=== PATIENT | male | born 1970 | race Caucasian/White ===

== ENCOUNTER 2016-07-29 17:21 | Emergency (ER) | payer OTHER ==
[~2016-07-29] VITALS: Ht 177.8 cm; Wt 75.0 kg
[~2016-07-29 17:21] MED LIST: BUSP5TAB3 PO; PROZ40CA PO
[2016-07-29 17:46] VITALS: BP 124/77; PULSE 98; RESP 20; TEMP 97.1; O2SAT 98
[2016-07-29] MEDS ORDERED: REME15TA PO (17:50)
--- NOTE | 2016-07-29 18:05 | PD ---
HPI Chief Complaint: Psychiatric Symptoms Time Seen by Provider: 18:05 Travel History International Travel<30 days: No Contact w/Intl Traveler<30days: No Traveled to known affect area: No History of Present Illness HPI 46-year-old male is brought into the emergency department under a [place] act for evaluation. Patient has been drinking alcohol and states that he took pain medication ordered to help him sleep. He denies this being a suicide attempt. He was throwing things around his yard and belligerent when police arrived. They brought him into the emergency department for further evaluation. Patient denies suicidal homicidal ideations. He admits to drinking alcohol and taking pain medication today. Denies any other acute medical needs. PFSH Past Medical History Bipolar Disorder: Yes Depression: Yes Diabetes: No Diminished Hearing: No Psychiatric: Yes Myocardial Infarction: Yes (2009) Seizures: Yes (R/T ALCOHOL WITHDRAWAL ) Social History Alcohol Use: Yes (PT ADMITS TO DRINKING VODKA AND MOUTH WASH TODAY) Tobacco Use: No Substance Use: Yes (USES COCAINE ON OCCASION, USED CRACK TODAY) Allergies-Medications (Allergen,Severity, Reaction): Coded Allergies: No Known Allergies (Verified , 10/14/10) Reported Meds & Prescriptions Reported Meds & Active Scripts Active Reported Remeron (Mirtazapine) 15 Mg Tab 15 Mg PO HS Review of Systems ROS Limitations: Intoxication Except as stated in HPI: all other systems reviewed are Neg Physical Exam Exam Limitations: Intoxication Narrative GENERAL: Well-nourished male patient, clinically intoxicated but in no acute distress SKIN: Focused skin assessment warm/dry. HEAD: Atraumatic. Normocephalic. EYES: Pupils equal and round. No scleral icterus. No injection or drainage. ENT: No nasal bleeding or discharge. Mucous membranes pink and moist. NECK: Trachea midline. No JVD. CARDIOVASCULAR: Elevated rate and rhythm. No murmur appreciated. RESPIRATORY: No accessory muscle use. Clear to auscultation. Breath sounds equal bilaterally. GASTROINTESTINAL: Abdomen soft, non-tender, nondistended. Hepatic and splenic margins not palpable. MUSCULOSKELETAL: No obvious deformities. No clubbing. No cyanosis. No edema. NEUROLOGICAL: Lethargic, arousable. No obvious cranial nerve deficits. Motor grossly within normal limits. Slurred speech. Data Data Last Documented VS Vital Signs Date Time Temp Pulse Resp B/P Pulse Ox O2 Delivery O2 Flow Rate FiO2 4/20/17 17:46 97.1 98 20 124/77 98 Orders Complete Blood Count With Diff (07/29/16 18:04) Basic Metabolic Panel (Bmp) (07/29/16 18:04) Iv Access Insert/Monitor (07/29/16 18:04) Drug Screen, Random Urine (07/29/16 18:04) Alcohol (Ethanol) (07/29/16 18:04) Sodium Chlor 0.9% 1000 Ml Inj (Ns 1000 M (07/29/16 18:15) Thiamine Inj (Thiamine Inj) (07/29/16 18:15) MDM Medical Decision Making Medical Screen Exam Complete: Yes Emergency Medical Condition: Yes Medical Record Reviewed: Yes Differential Diagnosis Intoxication versus polysubstance abuse versus mood disorder versus personality disorder versus overdose intentional versus accidental Narrative Course 46-year-old male presents to emergency department under a [place] act for evaluation. Patient is clinically intoxicated. He is arousable. Heart rate is mildly elevated but vital signs otherwise stable. Lab work is ordered to include Tylenol and salicylate level. Pending no acute lab abnormality, he will be monitored until he can be safely dispositioned. Diagnosis Primary Impression: Alcohol intoxication Qualified Code: F10.129 - Alcohol intoxication, with unspecified complication Condition: Stable [address]bbie [address] Jul 29, 2016 18:05
[2016-07-29] MEDS ORDERED: THIAMINE INJ 100 MG in SODIUM CHLORIDE 0.9% INJ 100 ML IV ONE (18:15)
[2016-07-29] MEDS ORDERED: SODIUM CHLOR 0.9% 1000 ML INJ 1,000 ML IV ONE (18:15)
[2016-07-29 18:58] LABS: AUTOMATED NEUTROPHIL # 4.8 TH/MM3 (1.8-7.7); BASOPHIL # 0.1 TH/MM3 (0-0.2); BASOPHIL % 0.8 % (0.0-2.0); EOSINOPHIL # 0.1 TH/MM3 (0-0.4); EOSINOPHIL % 1.9 % (0.0-4.0); HEMATOCRIT 48.6 % (39.0-51.0); HEMO FLAGS DIFF FINAL; LYMPH % 26.1 % (9.0-44.0); MEAN CORPUSCULAR HEMOGLOBIN 31.9 PG (27.0-34.0); MEAN CORPUSCULAR HGB CONC 34.3 % (32.0-36.0); MONO % 7.9 % (0.0-8.0); NEUT % 63.3 % (16.0-70.0); PLATELET COUNT 278 TH/MM3 (150-450); RED BLOOD COUNT 5.23 MIL/MM3 (4.50-5.90); RED CELL DISTRIBUTION WIDTH 13.8 % (11.6-17.2); WHITE BLOOD COUNT 7.6 TH/MM3 (4.0-11.0)
[2016-07-29 19:17] LABS: BICARBONATE 28.9 MEQ/L (21.0-32.0)
[2016-07-29 19:20] VITALS: BP 148/87; PULSE 89; RESP 16; TEMP 98.3; O2SAT 96
== END 2016-07-30 09:43 | disposition home or self-care (01) ==
LOC: NEPD 17:21
DX: F10.129 Alcohol abuse with intoxication, unspecified (principal); F14.90 Cocaine use, unspecified, uncomplicated
CPT/HCPCS: 80048; 80307; 85025; 96365; 99285; J3411; J7030